=== PATIENT | female | born 1940 | race Caucasian/White ===

== ENCOUNTER → 2020-04-01 12:52 | Outpatient (CLI) | payer MEDICARE, SELFPAY ==
[2020-04-01 13:29] LABS: Erythrocyte Sedimentation Rate 16 mm/hr (0-30)
[2020-04-01 13:47] LABS: Albumin Level 4.4 g/dl (3.5-5.0); Albumin/Globulin Ratio 1.5 (1.1-1.8); Alkaline Phosphatase 92 U/L (38-126); Anion Gap 11.4 mEq/L (5-15); Aspartate Amino Transferase 30 U/L (14-36); Bilirubin,Total 0.6 mg/dl (0.2-1.3); Blood Urea Nitrogen 14 mg/dl (7-17); Calcium 10.3 mg/dl (8.4-10.2); Carbon Dioxide 26 mmol/L (22.0-30.0); Chloride 105 mmol/L (98-107); Estimated Glomerular Filt Rate 60 ml/min (>60); GFR (African American) 73 ML/MIN (>60); Glucose 93 mg/dl (74-100); Potassium 4.4 mmoL/L (3.5-5.1); Sodium 138 mmol/L (136-145); Total Protein,Serum 7.4 g/dl (6.3-8.2)
[2020-04-01 13:49] LABS: Alanine Aminotransferase 5 U/L (12-78)
[2020-04-01 14:06] LABS: T4 (Thyroxine) 8.8 ug/dl (5.53-11.0)
[2020-04-01 14:19] LABS: Thyroid Stimulating Hormone 3.05 uIU/mL (0.465-4.68)
== END ==
PROVIDERS: Visit Provider Family Medicine
DX: E03.9 Hypothyroidism, unspecified (principal); R53.83 Other fatigue
CPT/HCPCS: 80053; 84436; 84443; 85651

== ENCOUNTER → 2021-02-14 14:08 | Outpatient (CLI) | payer MEDICARE, SELFPAY | PROVIDERS: Visit Provider Family Medicine | DX: J32.9 Chronic sinusitis, unspecified (principal) | CPT/HCPCS: 87070; 87186 ==

== ENCOUNTER → 2021-03-02 13:40 | Outpatient (CLI) | payer MEDICARE, SELFPAY | PROVIDERS: Visit Provider Family Medicine | DX: B95.8 Unspecified staphylococcus as the cause of diseases classified elsewhere (principal); J32.8 Other chronic sinusitis | CPT/HCPCS: 87070; 87205 ==

== ENCOUNTER → 2021-05-18 13:54 | Outpatient (CLI) | payer MEDICARE, SELFPAY | PROVIDERS: Visit Provider Family Medicine | DX: R39.9 Unspecified symptoms and signs involving the genitourinary system (principal) | CPT/HCPCS: 87086; 87088; 87186 ==

== ENCOUNTER → 2022-02-20 15:15 | Outpatient (CLI) | payer MEDICARE, SELFPAY ==
[2022-02-20 13:08] LABS: Basophils # 0.1 K/mm3 (0-0.2); Basophils % 1.1 % (0.1-2.0); Eosinophils # 0.6 K/mm3 (0.0-0.4); Eosinophils % 9.2 % (0.1-12.0); Hematocrit 41.9 % (37.0-47.0); Lymphocytes # 1.5 K/mm3 (0.7-4.5); Lymphocytes % 25.2 % (10-50); Mean Corpuscular HGB Conc 33.3 g/dL (31.8-35.4); Mean Corpuscular Hemoglobin 30.2 pg (27.0-31.2); Mean Corpuscular Volume 90.7 fl (81-99); Mean Platelet Volume 7.8 fl (7.4-10.4); Monocytes # 0.4 K/mm3 (0.1-1.0); Monocytes % 5.8 % (1.7-9.3); Neutrophils # 3.6 K/mm3 (1.8-7.8); Neutrophils % 58.6 % (37.0-80.0); Platelet Count 245 K/mm3 (142-424); Red Blood Count 4.62 M/mm3 (4.20-5.40); Red Cell Distribution Width 13.8 % (11.5-17.5); White Blood Count 6.1 K/mm3 (4.8-10.8)
[2022-02-20 13:10] LABS: Chloride 108 mmol/L (98-107)
[2022-02-20 13:11] LABS: Potassium 4.8 mmoL/L (3.5-5.1); Sodium 139 mmol/L (136-145)
[2022-02-20 13:13] LABS: Anion Gap 12.8 mEq/L (5-15); Carbon Dioxide 23 mmol/L (22.0-30.0)
[2022-02-20 13:14] LABS: Albumin Level 3.9 g/dl (3.5-5.0); Albumin/Globulin Ratio 1.6 (1.1-1.8); Calcium 10.6 mg/dl (8.4-10.2); Globulin 2.4 g/dL (1.3-3.2); Glucose 97 mg/dl (74-100); HDL Cholesterol 67 mg/dl (40-60); Total Protein,Serum 6.3 g/dl (6.3-8.2)
[2022-02-20 13:25] LABS: Alanine Aminotransferase 7 U/L (12-78); Alkaline Phosphatase 76 U/L (38-126); Aspartate Amino Transferase 30 U/L (14-36); Bilirubin,Total 0.7 mg/dl (0.2-1.3); Blood Urea Nitrogen 17 mg/dl (7-17); Chol/HDL Ratio 3.3 (1-3.5); Cholesterol 222 mg/dl (140-200); Direct LDL Cholesterol 104.35 mg/dL (100-129); Estimated Glomerular Filt Rate 60 ml/min (>60); GFR (African American) 72 ML/MIN (>60); Triglycerides 122 mg/dl (30-150); VLDL Cholesterol 24 mg/dL (0-40)
[2022-02-20 13:43] LABS: Thyroid Stimulating Hormone 5.01 uIU/mL (0.465-4.68)
== END ==
PROVIDERS: PCP Family Medicine; Visit Provider Family Medicine
DX: Z00.00 Encounter for general adult medical examination without abnormal findings (principal); E04.9 Nontoxic goiter, unspecified; E11.9 Type 2 diabetes mellitus without complications; H40.9 Unspecified glaucoma
CPT/HCPCS: 80053; 80061; 84443; 85025

== ENCOUNTER → 2022-03-01 09:05 | Outpatient (CLI) | payer MEDICARE, SELFPAY ==
--- NOTE | 2022-03-01 09:07 | CA_ITS ---
FINAL REPORT TECHNIQUE: Color Doppler, duplex Doppler and fabian scale sonography of the bilateral neck arterial vasculature was performed. Velocities were measured in the carotid arteries. Stenosis evaluation based on the validated velocity criteria. CLINICAL HISTORY: bruit FINDINGS: The peak systolic velocity of the right common carotid artery is 97 cm/s. The peak systolic velocity of the right internal carotid artery is 84 cm/s and end diastolic velocity 24 cm/s. A small amount of plaque is present. The right external carotid artery is patent. The right vertebral artery is patent with antegrade flow. The peak systolic velocity of the left common carotid artery is 81 cm/s. The peak systolic velocity of the left internal carotid artery is 93 cm/s and end diastolic velocity 28 cm/s. A small amount of plaque is present. The left external carotid artery is patent.The left vertebral artery is patent with antegrade flow. IMPRESSION: Less than 50% bilateral carotid stenoses. Bilateral patent vertebral arteries with antegrade flow. If indicated, CTA or MRA could further evaluate. Reviewed, Interpreted and Dictated by Jian Winn III, MD Transcribed by Amina Younger Authenticated by Jian Winn III, MD on 03/01/2022 10:58:33 AM [facility]
== END ==
PROVIDERS: PCP Family Medicine; Visit Provider Family Medicine
DX: R09.89 Other specified symptoms and signs involving the circulatory and respiratory systems (principal)
CPT/HCPCS: 93880

== ENCOUNTER → 2022-05-15 16:20 | Outpatient (CLI) | payer MEDICARE, SELFPAY ==
[2022-05-15 14:59] LABS: Basophils # 0.1 K/mm3 (0-0.2); Basophils % 2.1 % (0.1-2.0); Eosinophils # 0.4 K/mm3 (0.0-0.4); Hematocrit 42.2 % (37.0-47.0); Hemoglobin 13.4 g/dL (12.2-16.2); Lymphocytes # 1.4 K/mm3 (0.7-4.5); Lymphocytes % 22.4 % (10-50); Mean Corpuscular HGB Conc 31.7 g/dL (31.8-35.4); Mean Corpuscular Hemoglobin 29.9 pg (27.0-31.2); Mean Corpuscular Volume 94.5 fl (81-99); Mean Platelet Volume 8.4 fl (7.4-10.4); Monocytes # 0.4 K/mm3 (0.1-1.0); Monocytes % 6.1 % (1.7-9.3); Neutrophils # 4.1 K/mm3 (1.8-7.8); Neutrophils % 63.5 % (37.0-80.0); Platelet Count 308 K/mm3 (142-424); Red Blood Count 4.47 M/mm3 (4.20-5.40); Red Cell Distribution Width 14.3 % (11.5-17.5); White Blood Count 6.4 K/mm3 (4.8-10.8)
[2022-05-15 15:08] LABS: Alanine Aminotransferase 7 U/L (12-78); Albumin Level 3.7 g/dl (3.5-5.0); Albumin/Globulin Ratio 1.4 (1.1-1.8); Alkaline Phosphatase 78 U/L (38-126); Anion Gap 9.7 mEq/L (5-15); Aspartate Amino Transferase 30 U/L (14-36); Bilirubin,Total 0.3 mg/dl (0.2-1.3); Blood Urea Nitrogen 16 mg/dl (7-17); Calcium 10.3 mg/dl (8.4-10.2); Carbon Dioxide 26 mmol/L (22.0-30.0); Chloride 108 mmol/L (98-107); Estimated Glomerular Filt Rate 60 ml/min (>60); GFR (African American) 72 ML/MIN (>60); Globulin 2.7 g/dL (1.3-3.2); Glucose 95 mg/dl (74-100); Potassium 4.7 mmoL/L (3.5-5.1); Sodium 139 mmol/L (136-145); Total Protein,Serum 6.4 g/dl (6.3-8.2)
[2022-05-15 15:39] LABS: Thyroid Stimulating Hormone 1.58 uIU/mL (0.465-4.68)
== END ==
PROVIDERS: PCP Family Medicine; Visit Provider Family Medicine
DX: E03.9 Hypothyroidism, unspecified (principal)
CPT/HCPCS: 80053; 84443; 85025

== ENCOUNTER → 2023-03-26 23:19 | Outpatient (CLI) | payer MEDICARE, SELFPAY ==
[2023-03-26 18:05] LABS: Basophils % 0.5 % (0.1-2.0); Eosinophils # 0.6 K/mm3 (0.0-0.4); Eosinophils % 8.3 % (0.1-12.0); Hematocrit 44.5 % (37.0-47.0); Lymphocytes # 1.8 K/mm3 (0.7-4.5); Lymphocytes % 25.3 % (10-50); Mean Corpuscular HGB Conc 31.5 g/dL (31.8-35.4); Mean Corpuscular Hemoglobin 28.9 pg (27.0-31.2); Mean Corpuscular Volume 91.8 fl (81-99); Mean Platelet Volume 9.1 fl (7.4-10.4); Monocytes # 0.4 K/mm3 (0.1-1.0); Monocytes % 5.7 % (1.7-9.3); Neutrophils # 4.2 K/mm3 (1.8-7.8); Neutrophils % 60.2 % (37.0-80.0); Platelet Count 259 K/mm3 (142-424); Red Blood Count 4.85 M/mm3 (4.20-5.40); Red Cell Distribution Width 13.5 % (11.5-17.5)
[2023-03-26 18:12] LABS: Alanine Aminotransferase 12 U/L (12-78); Albumin/Globulin Ratio 1.4 (1.1-1.8); Alkaline Phosphatase 84 U/L (38-126); Anion Gap 14.5 mEq/L (5-15); Aspartate Amino Transferase 33 U/L (14-36); Bilirubin,Total 0.7 mg/dl (0.2-1.3); Blood Urea Nitrogen 18 mg/dl (7-17); Calcium 9.6 mg/dl (8.4-10.2); Carbon Dioxide 26 mmol/L (22.0-30.0); Chloride 106 mmol/L (98-107); Chol/HDL Ratio 3.3 (1-3.5); Cholesterol 242 mg/dl (140-200); Estimated Glomerular Filt Rate 60 ml/min (>60); GFR (African American) 72 ML/MIN (>60); Globulin 2.9 g/dL (1.3-3.2); Glucose 84 mg/dl (74-100); HDL Cholesterol 74 mg/dl (40-60); Potassium 4.5 mmoL/L (3.5-5.1); Sodium 142 mmol/L (136-145); Total Protein,Serum 6.9 g/dl (6.3-8.2); Triglycerides 108 mg/dl (30-150); VLDL Cholesterol 22 mg/dL (0-40)
[2023-03-26 18:22] LABS: Direct LDL Cholesterol 119.26 mg/dL (100-129)
[2023-03-26 18:35] LABS: Creatinine,Urine Random 25 mg/dL (Not Estab.)
[2023-03-26 18:38] LABS: Microalbumin < 6.000 mg/L (0-16.7)
[2023-03-26 18:41] LABS: Thyroid Stimulating Hormone 0.93 uIU/mL (0.465-4.68)
== END ==
PROVIDERS: PCP Family Medicine; Visit Provider Family Medicine
DX: R53.83 Other fatigue (principal); J32.9 Chronic sinusitis, unspecified; E11.9 Type 2 diabetes mellitus without complications; E78.5 Hyperlipidemia, unspecified; E55.9 Vitamin D deficiency, unspecified
CPT/HCPCS: 80053; 80061; 82043; 82306; 82570; 83036; 84443; 85025

== ENCOUNTER 2023-04-25 09:46 | Emergency (ER) | payer MEDICARE, SELFPAY ==
[2023-04-25 09:55] VITALS: BP 160/76; PULSE 84; RESP 17; TEMP 36.6; O2SAT 97; BMI 23.4
--- NOTE | 2023-04-25 10:04 | CT_ITS ---
FINAL REPORT TECHNIQUE: Axial images were obtained from the lung apex to the mid abdomen by computed tomography. Coronal and sagittal reformatted images were obtained. This study was performed with techniques to keep radiation doses as low as reasonably achievable, (ALARA). Individualized dose reduction techniques using automated exposure control or adjustment of mA and/or kV according to the patient''s size were employed. CLINICAL HISTORY: pain resulting from fall, RIGHT RIB PAIN FINDINGS: There is no axillary adenopathy. There are multiple borderline mediastinal nodes present. Heart size is normal. There is mild biapical scarring as well as mild bibasilar atelectasis versus scar. There is no pericardial or pleural effusion. Limited images of the upper abdomen are unremarkable. There are several pulmonary nodules identified. There is 1 nodule present in the lateral right upper lobe which measures 6 mm in size. There is a superior segment left lower lobe 4 mm nodule present. No prior films are available for comparison purposes. IMPRESSION: Several pulmonary nodules as described in the body of the report. The largest measures up to 6 mm in size. According to Fleischner Society criteria, suggest a 3 to 6-month CT follow-up. Mild biapical scarring and bibasilar atelectasis versus scar. Several borderline in size mediastinal nodes, nonspecific. Reviewed, Interpreted and Dictated by Jian Winn III, MD Transcribed by Xiao Ang Authenticated and . [facility]
--- NOTE | 2023-04-25 10:08 | CT_ITS ---
FINAL REPORT CLINICAL HISTORY: fall COMPARISON: None FINDINGS: Axial images of the head were obtained without contrast. Coronal and sagittal reformatted images were also obtained. This study was performed with techniques to keep radiation doses as low as reasonably achievable (ALARA). Individualized dose reduction techniques using automated exposure control or adjustment of mA and/or kV according to the patient's size were employed. There is generalized age-appropriate atrophy. Periventricular low-attenuation areas are seen consistent with mild chronic ischemic changes. There is no evidence of intracranial hemorrhage or mass. There is no evidence of acute infarct. There is no evidence of shift of the midline structures. There is evidence of a prior right sided mastoidectomy. Severe sinusitis is present as well. IMPRESSION: Atrophy and mild periventricular chronic ischemic changes. Severe sinusitis. Reviewed, Interpreted and Dictated by Jian Winn III, MD Transcribed by Xiao Ang Authenticated and [facility]
--- NOTE | 2023-04-25 10:08 | CT_ITS ---
FINAL REPORT CLINICAL HISTORY: fall COMPARISON: None FINDINGS: Axial CT images of the cervical spine were obtained without contrast. Sagittal and coronal reformatted images were also obtained. This study was performed with techniques to keep radiation doses as low as reasonably achievable (ALARA). Individualized dose reduction techniques using automated exposure control or adjustment of mA and/or kV according to the patient's size were employed. There is no evidence of fracture or dislocation. The bony alignment is normal. Mild to moderate degenerative changes are present. There is no evidence of canal stenosis. No paraspinous soft tissue abnormality is seen. IMPRESSION: No fracture identified. Mild to moderate degenerative changes present. Reviewed, Interpreted and Dictated by Jian Winn III, MD Transcribed by Xiao Ang Authenticated and [facility]
[2023-04-25 10:27] LABS: Basophils % 0.4 % (0.1-2.0); Eosinophils # 0.3 K/mm3 (0.0-0.4); Eosinophils % 5.1 % (0.1-12.0); Hematocrit 41.5 % (37.0-47.0); Hemoglobin 13.4 g/dL (12.2-16.2); Lymphocytes # 1.2 K/mm3 (0.7-4.5); Lymphocytes % 18.7 % (10-50); Mean Corpuscular HGB Conc 32.2 g/dL (31.8-35.4); Mean Corpuscular Hemoglobin 28.9 pg (27.0-31.2); Mean Corpuscular Volume 89.6 fl (81-99); Mean Platelet Volume 7.6 fl (7.4-10.4); Monocytes # 0.4 K/mm3 (0.1-1.0); Monocytes % 6.2 % (1.7-9.3); Neutrophils # 4.3 K/mm3 (1.8-7.8); Neutrophils % 69.7 % (37.0-80.0); Platelet Count 226 K/mm3 (142-424); Red Blood Count 4.63 M/mm3 (4.20-5.40); Red Cell Distribution Width 13.6 % (11.5-17.5); White Blood Count 6.2 K/mm3 (4.8-10.8)
[2023-04-25 10:32] LABS: Chloride 109 mmol/L (98-107); Sodium 140 mmol/L (136-145)
[2023-04-25 10:34] LABS: Alanine Aminotransferase 15 U/L (12-78); Aspartate Amino Transferase 32 U/L (14-36); Blood Urea Nitrogen 17 mg/dl (7-17); Creatinine Clearance Estimated 48 mL/min (50-200); Estimated Glomerular Filt Rate 53 ml/min (>60); GFR (African American) 64 ML/MIN (>60)
[2023-04-25 10:35] LABS: Albumin Level 3.9 g/dl (3.5-5.0); Albumin/Globulin Ratio 1.3 (1.1-1.8); Alkaline Phosphatase 77 U/L (38-126); Bilirubin,Total 0.9 mg/dl (0.2-1.3); Calcium 9.9 mg/dl (8.4-10.2); Carbon Dioxide 24 mmol/L (22.0-30.0); Glucose 96 mg/dl (74-100); Total Protein,Serum 6.9 g/dl (6.3-8.2)
[2023-04-25 11:01] VITALS: BP 170/89; PULSE 75; O2SAT 98
[2023-04-25 11:30] VITALS: BP 154/78; PULSE 75; RESP 15; O2SAT 98
--- NOTE | 2023-04-25 11:40 | PC.NURSE ---
Rounded on patient; call her within reach. Water provided to patient
[2023-04-25 12:00] VITALS: BP 152/75; PULSE 72; O2SAT 98
--- NOTE | 2023-04-25 12:59 | HMH.EDGENADL ---
Discharge Plan Disposition Patient Disposition: Home, Self-Care Condition: Good Chief Complaint: Fall Prescriptions Prescriptions: No Action latanoprost 0.005 % drops OPHTHALMIC methylprednisolone acetate 40 mg/mL suspension 40 mg IM ONCE Qty: 1 0RF triamcinolone acetonide [Nasacort] 55 mcg aerosol,spray 2 spray intranasal HS Qty: 16.9 10RF Rx Instructions: administer into each nostril fluticasone propion-salmeterol [Advair Diskus] 250-50 mcg/dose blister with device 1 inh inhalation BID Qty: 60 10RF omeprazole 20 mg capsule,delayed release(DR/EC) 20 mg PO DAILY Qty: 90 10RF levothyroxine [Synthroid] 50 mcg tablet 50 mcg PO DAILY Qty: 90 3RF cefdinir 300 mg capsule 300 mg PO BID 10 Days Qty: 20 0RF fluticasone propion-salmeterol [Advair Diskus] 250-50 mcg/dose blister with device 1 inh INHALATION BID Qty: 180 10RF meclizine 25 mg tablet 25 mg PO TID PRN (Reason: dizziness) Qty: 30 10RF albuterol sulfate 90 mcg/actuation HFA aerosol inhaler 2 puff IH QID PRN (Reason: shortness of breath or wheezing) Qty: 8.5 10RF Rx Instructions: please provide with spacer magnesium citrate Solution 150 ml PO DAILY PRN (Reason: constipation) Qty: 296 3RF polyethylene glycol 3350 [Miralax] 17 gram/dose powder 17 g PO BID Qty: 510 10RF Referrals Follow up/Referrals: Scott Small MD [Primary Care Provider] - See instructions Clinical Impressions Clinical Impression: Incidental lung nodule Fall Qualifiers: Encounter type: initial encounter Qualified Code(s): W19.XXXA - Unspecified fall, initial encounter Discharge ED Provider: Johnny English General Adult HPI General Chief complaint: Fall Stated complaint: Fall@home 7/12 rib pain, LT leg weakness, nausea Time Seen by Provider: 04/25/23 10:57 Mode of Arrival: Wheelchair Source of Information: Patient and Relative Limitations: No Limitations Description of Symptoms (Recalled from ER Triage Doc. by RN): pt presents to ed with c/o right rib pain that radiates under her breast and generalized wekaness following a fall yesterday. pt states she was standing in the [place] on the phone and felt herself starting to fall backwards. pt states she caught her fall on a chair and fell onto her right side onto the hardwood. pt denies hitting her head and denies LOC. abrasion noted to the right side of her back. History of Present Illness HPI narrative: 83yo F presents to the ER secondary to right rib pain. Reports she fell yesterday. Denies LOC or head strike. No recent illness. No shortness of breath. Does not take a blood thinner. With family at bedside, the patient states her left leg did not feel quite right. Denies weakness or paresthesia. Related Data Home Medications Medication Instructions Recorded Confirmed latanoprost 0.005 % eye drops ophthalmic (eye) 04/01/20 04/18/23 Previous Rx's Medication Instructions Recorded fluticasone 250 mcg-salmeterol 50 1 inh inhalation BID #180 ea 02/20/22 mcg/dose blistr powdr for inhalation (Advair Diskus) meclizine 25 mg tablet 25 mg PO TID PRN dizziness #30 tabs 02/20/22 albuterol sulfate 90 mcg/actuation 2 puff inhalation QID PRN 04/13/22 aerosol inhaler shortness of breath or wheezing #8.5 grams magnesium citrate 150 ml PO DAILY PRN constipation 12/24/22 #296 mL polyethylene glycol 3350 17 17 g PO BID #510 grams 12/24/22 gram/dose oral powder (Miralax) cefdinir 300 mg capsule 300 mg PO BID 10 days #20 caps 04/18/23 fluticasone 250 mcg-salmeterol 50 1 inh inhalation BID #60 ea 04/18/23 mcg/dose blistr powdr for inhalation (Advair Diskus) levothyroxine 50 mcg tablet 50 mcg PO DAILY #90 tabs 04/18/23 (Synthroid) omeprazole 20 mg capsule,delayed 20 mg PO DAILY #90 caps 04/18/23 release triamcinolone acetonide 55 mcg 2 spray intranasal HS #16.9 mL 04/18/23 nasal spray aerosol (Nasacort) Allergies Allergy/AdvReac Type Severity R
[2023-04-25 13:18] VITALS: BP 148/70; PULSE 74; RESP 20; TEMP 36.6; O2SAT 99
== END 2023-04-25 13:19 | disposition home or self-care (01) ==
PROVIDERS: Emergency Provider Family Medicine; PCP Family Medicine
DX: R07.81 Pleurodynia (principal); R53.1 Weakness; R11.0 Nausea; W19.XXXA Unspecified fall, initial encounter; J45.909 Unspecified asthma, uncomplicated; R91.1 Solitary pulmonary nodule
CPT/HCPCS: 70450; 71250; 72125; 80053; 85025; 99284; 99285

== ENCOUNTER 2023-11-06 21:00 | Outpatient (CLI) | payer MEDICARE, SELFPAY | END 2023-11-06 23:59 | LOC: LAB.DROPOF 21:01 | PROVIDERS: PCP Family Medicine; Visit Provider Family Medicine | DX: R69 Illness, unspecified (principal); R09.81 Nasal congestion | CPT/HCPCS: 87070 ==

== ENCOUNTER 2023-12-03 10:18 | Outpatient (CLI) | payer MEDICARE, SELFPAY ==
--- NOTE | 2023-12-03 10:25 | CT_ITS ---
FINAL REPORT TECHNIQUE: Axial images were obtained through the chest without contrast. CLINICAL HISTORY: Pulmonary nodules COMPARISON: 04/25/2023 FINDINGS: The lateral right upper lobe 6 mm nodule identified on the prior CT of April 2023 remains present and is unchanged in size and appearance. This is best seen on image #108 of series 3. The superior segmental left lower lobe nodule noted on the prior exam is also unchanged and stable, best seen on image #51 of series 3. There are several other small lower lobe scattered nodules, for instance bilateral nodules seen on image #122 of series 3, measuring 3 to 4 mm in size. The heart size is normal. There is no pericardial or pleural effusion. Limited images of the upper abdomen are unremarkable. IMPRESSION: No significant change in the multiple nodules identified on the prior CT of April 2023. Would recommend 1 year follow-up CT examination to evaluate stability. Reviewed, Interpreted and Dictated by Heath Godinez MD Transcribed by Xiao Ang Authenticated and [facility]
== END 2023-12-03 23:59 ==
LOC: RAD 10:19
PROVIDERS: PCP Family Medicine; Visit Provider Family Medicine
DX: R91.1 Solitary pulmonary nodule (principal)
CPT/HCPCS: 71250

== ENCOUNTER 2024-02-17 14:20 | Outpatient (CLI) | payer MEDICARE, SELFPAY ==
[2024-02-17 18:56] LABS: Basophils # 0.1 K/mm3 (0-0.2); Basophils % 0.8 % (0.1-2.0); Eosinophils # 0.6 K/mm3 (0.0-0.4); Eosinophils % 9.4 % (0.1-12.0); Hematocrit 41.9 % (37.0-47.0); Hemoglobin 13.3 g/dL (12.2-16.2); Lymphocytes # 1.6 K/mm3 (0.7-4.5); Lymphocytes % 25.1 % (10-50); Mean Corpuscular HGB Conc 31.7 g/dL (31.8-35.4); Mean Corpuscular Hemoglobin 30.5 pg (27.0-31.2); Mean Corpuscular Volume 96.3 fl (81-99); Mean Platelet Volume 9.4 fl (7.4-10.4); Monocytes # 0.4 K/mm3 (0.1-1.0); Monocytes % 5.8 % (1.7-9.3); Neutrophils # 3.6 K/mm3 (1.8-7.8); Platelet Count 266 K/mm3 (142-424); Red Blood Count 4.35 M/mm3 (4.20-5.40); Red Cell Distribution Width 14.5 % (11.5-17.5); White Blood Count 6.2 K/mm3 (4.8-10.8)
[2024-02-17 19:43] LABS: Alanine Aminotransferase 8 U/L (12-78); Albumin Level 3.8 g/dl (3.5-5.0); Albumin/Globulin Ratio 1.5 (1.1-1.8); Alkaline Phosphatase 76 U/L (38-126); Anion Gap 10.4 mEq/L (5-15); Aspartate Amino Transferase 25 U/L (14-36); Bilirubin,Total 0.4 mg/dl (0.2-1.3); Blood Urea Nitrogen 16 mg/dl (7-17); Calcium 9.8 mg/dl (8.4-10.2); Carbon Dioxide 24 mmol/L (22.0-30.0); Chloride 110 mmol/L (98-107); Chol/HDL Ratio 3.1 (1-3.5); Cholesterol 230 mg/dl (140-200); Estimated Glomerular Filt Rate 53 ml/min (>60); GFR (African American) 64 ML/MIN (>60); Globulin 2.5 g/dL (1.3-3.2); Glucose 98 mg/dl (74-100); HDL Cholesterol 75 mg/dl (40-60); Potassium 4.4 mmoL/L (3.5-5.1); Sodium 140 mmol/L (136-145); Total Protein,Serum 6.3 g/dl (6.3-8.2); Triglycerides 126 mg/dl (30-150); VLDL Cholesterol 25 mg/dL (0-40)
[2024-02-17 20:00] LABS: 25-OH Vitamin D, Total 45.8 ng/mL (30-100)
== END 2024-02-17 23:59 | disposition home or self-care (01) ==
LOC: LAB.DROPOF 02-18 14:21
PROVIDERS: PCP Family Medicine; Visit Provider Family Medicine
DX: J45.20 Mild intermittent asthma, uncomplicated (principal); E03.9 Hypothyroidism, unspecified; E55.9 Vitamin D deficiency, unspecified; Z79.899 Other long term (current) drug therapy
CPT/HCPCS: 80053; 80061; 82306; 84443; 85025

== ENCOUNTER 2024-03-13 18:41 | Outpatient (CLI) | payer MEDICARE, SELFPAY | END 2024-03-13 23:59 | disposition home or self-care (01) | LOC: LAB.DROPOF 18:43 | PROVIDERS: PCP Family Medicine; Visit Provider Family Medicine | DX: R05.9 Cough, unspecified (principal); U07.1 COVID-19 | CPT/HCPCS: 87635 ==

== ENCOUNTER 2024-09-14 11:52 | Outpatient (CLI) | payer MEDICARE, SELFPAY ==
[2024-09-14 18:37] LABS: Hemoglobin A1C 5.1 % (4.0-6.0)
[2024-09-14 18:49] LABS: Albumin Level 4.1 g/dl (3.5-5.0); Chloride 109 mmol/L (98-107); Potassium 4.3 mmoL/L (3.5-5.1); Sodium 141 mmol/L (136-145)
[2024-09-14 18:51] LABS: Blood Urea Nitrogen 15 mg/dl (7-17); Estimated Glomerular Filt Rate 53 ml/min (>60); GFR (African American) 64 ML/MIN (>60)
[2024-09-14 18:52] LABS: Alanine Aminotransferase 10 U/L (12-78); Albumin/Globulin Ratio 1.6 (1.1-1.8); Alkaline Phosphatase 85 U/L (38-126); Anion Gap 12.3 mEq/L (5-15); Aspartate Amino Transferase 28 U/L (14-36); Bilirubin,Total 0.9 mg/dl (0.2-1.3); Calcium 10.1 mg/dl (8.4-10.2); Carbon Dioxide 24 mmol/L (22.0-30.0); Globulin 2.6 g/dL (1.3-3.2); Glucose 75 mg/dl (74-100); Total Protein,Serum 6.7 g/dl (6.3-8.2)
== END 2024-09-14 23:59 | disposition home or self-care (01) ==
LOC: LAB.DROPOF 09-15 15:18
PROVIDERS: PCP Family Medicine; Visit Provider Family Medicine
DX: Z13.1 Encounter for screening for diabetes mellitus (principal); Z13.9 Encounter for screening, unspecified
CPT/HCPCS: 80053; 83036

== ENCOUNTER 2025-02-19 14:08 | Outpatient (CLI) | payer MEDICARE, SELFPAY ==
[2025-02-19 18:27] LABS: Basophils # 0.1 K/mm3 (0-0.2); Basophils % 0.9 % (0.1-2.0); Eosinophils # 0.7 Kmm3 (0.0-0.4); Eosinophils % 10.3 % (0.1-12.0); Hematocrit 39.2 % (37.0-47.0); Hemoglobin 12.9 g/dL (12.2-16.2); Immature Granulocytes # 0.02 10^3uL; Immature Granulocytes % 0.3 %; Lymphocytes # 1.8 K/mm3 (0.7-4.5); Lymphocytes % 28.6 % (10-50); Mean Corpuscular HGB Conc 32.9 g/dL (31.8-35.4); Mean Corpuscular Hemoglobin 30.6 pg (27.0-31.2); Mean Corpuscular Volume 92.9 fl (81-99); Mean Platelet Volume 9.6 fl (7.4-10.4); Monocytes # 0.4 K/mm3 (0.1-1.0); Monocytes % 6.9 % (1.7-9.3); Neutrophils # 3.4 K/mm3 (1.8-7.8); Nucleated Red Blood Cells # 0 10^3/uL; Nucleated Red Blood Cells % 0 %; Platelet Count 247 K/mm3 (142-424); Red Blood Count 4.22 M/mm3 (4.20-5.40); Red Cell Distribution Width 13.3 % (11.5-17.5); Red Cell Distribution Width-SD 45.6 fL; White Blood Count 6.4 K/mm3 (4.8-10.8)
[2025-02-19 18:51] LABS: Alanine Aminotransferase 7 U/L (12-78); Albumin/Globulin Ratio 1.6 (1.1-1.8); Alkaline Phosphatase 73 U/L (38-126); Anion Gap 4.4 mEq/L (5-15); Aspartate Amino Transferase 25 U/L (14-36); Bilirubin,Total 0.8 mg/dl (0.2-1.3); Blood Urea Nitrogen 16 mg/dl (7-17); Calcium 9.9 mg/dl (8.4-10.2); Carbon Dioxide 25 mmol/L (22.0-30.0); Chloride 112 mmol/L (98-107); Chol/HDL Ratio 2.8 (1-3.5); Cholesterol 179 mg/dl (140-200); Estimated Glomerular Filt Rate 53 ml/min (>60); GFR (African American) 64 ML/MIN (>60); Globulin 2.5 g/dL (1.3-3.2); Glucose 84 mg/dl (74-100); HDL Cholesterol 64 mg/dl (40-60); Potassium 4.4 mmoL/L (3.5-5.1); Sodium 137 mmol/L (136-145); Total Protein,Serum 6.5 g/dl (6.3-8.2); Triglycerides 76 mg/dl (30-150); VLDL Cholesterol 15 mg/dL (0-40)
[2025-02-19 19:02] LABS: Direct LDL Cholesterol 93.74 mg/dL (100-129)
[2025-02-19 19:45] LABS: Thyroid Stimulating Hormone 0.91 uIU/mL (0.465-4.68)
--- OUTSIDE RECORDS SUMMARY | 2025-02-22 09:56 | XMS_ITS | Continuity of Care Document ---
Author Organization [facility] & [place], [facility] [id number] Address [address] [place] [address] [address] [place] [address] Care Team Providers Care Hospitality Housekeeper Name Role Phone GABY ANGEL Primary Care Provider [phone] Assessment No assessment recorded. Plan of Treatment Reminders Order Date Submit Date Provider Last Modified By Organization Details Last Modified Time Details Appointments None record ed. Lab None record ed. Referral None record ed. Procedures None record ed. Surgeries None record ed. Imaging None record ed. Medication Orders None record ed. Patient TargetsNo targets recorded. Patient InstructionsNo instructions recorded. Reason for Referral None Reported. Problems Name Problem SNOMED Code Status Onset Date Resolution Date Notes Provider Name and Address Organization Details Recorded Time Chest pain 54028321 Active 2023 Jose A Westbrook MD [address] [place] [address],[place] [address] [place] [address], [phone], [facility] & [place] 4 09:44:02 Atrial fibrillation 69394188 Active 2023 Jose A Westbrook MD [address] [place] [address],[place] [address] [place] [address], [phone], [facility] & [place] 4 09:44:08 Tachycardia 9410009 Active 2023 Jose A Westbrook MD [address] [place] [address],[place] [address], [place], [phone], [facility] & [place] 4 09:44:14 Dyspnea on exertion 78927763 Active 2023 Jose A Westbrook MD [address] [place] [address],[place] [address], [phone], [place] - [facility] - [place] & [place] 4 14:23:14 Electrocardiog sonya abnormal 531476422 Active 2023 Jose A Westbrook MD [address] [place] [address],[place] [address] [place] [address], [phone], [place] [facility] [place] & [place] 4 14:23:28 Hypothyroidism 71158463 Active 2023 Jose A Westbrook MD [address] [place] [address],[facility] te [address] [place] [address], [phone], [place] [facility] [place] & [place] 4 14:23:32 Near syncope 838591018 Active 2023 Jose A Westbrook MD [address] [place] [address],[facility] te [address] [place] [address], [phone], [place] [facility] & [place] 4 14:23:36 Dyspnea 360496380 Active 2023 Jose A Westbrook MD [address] [place] [address],[facility] te [address] [place] [address], [phone], [place] [facility] - [place] & [place] 4 16:26:19 Pulmonary hypertension 96072574 Active 2023 Jose A Westbrook MD [address] [place] [address],[place] [address] [place] [address], [phone], [place] [facility] - [place] & [place] 4 16:29:00 Sensorineural hearing loss 22502327 Active 2023 BETTINA OLIVER [address] [place] [address],[place] [address] [place] [address], [phone], [place] - [facility] - [place] & [place] 4 13:28:18 Problem Notes None recorded. Procedures Surgical History Date Name Laterality Status Provider Name and Address Organization Details Recorded Time colonoscopy completed Laura Parks [place] - [facility] - [place] & [place] 05/21/2024 11:20:12 Back Surgery completed Kavya Dozier [place] - [facility] - [place] & [place] 09/01/2024 09:22:46 operation on the ear completed Kavya Dozier [place] - [facility] - [place] & [place] 09/01/2024 09:23:12 Imaging Results None recorded. Procedure Notes None recorded. Medical Equipment None Reported. Allergies No known drug allergies Medications Name Sig Start Date Stop Date Status Note LastModified by Organization Details LastModified Time latanoprost 0.005 % eye drops active Not Available Not Available Not Available fluticasone 250 mcg-salmete rol 50 mcg/dose blistr powdr for inhalation active Not Available Not Available N ot Available nystatin 100,000 unit/mL oral suspension active Not Available Not Available N ot Available azithromyci n 250 mg tablet 05/21 completed Not Available Not Available Not Available ondansetron HCl 4 mg tablet 05/21 completed Not Available Not Available Not Available prednisone 20 mg tablet 05/21 completed Not Available Not Available Not Available hydroxyzine HCl 50 mg tablet 05/21 completed Not Available Not Available Not Available sulfamethox azole 800 mg-trimetho prim 160 mg tablet 05/21 completed Not Available Not Available Not Available amoxicillin 875 mg tablet 05/21 completed Not Available Not Available Not Available levothyroxi ne 50 mcg tablet active Not Available Not Available Not Available cephalexin 500 mg capsule 05/21 completed Not Available Not Available Not Available brimonidine 0.2 % eye drops active Not Available Not Available Not Available omeprazole 20 mg capsule,del ayed release active Not Available Not Available Not Available montelukast 10 mg tablet 05/21 completed Not Available Not Available Not Available metoprolol succinate ER 25 mg tablet,exte nded release 24 hr Take 1 tablet every day by oral route. 2023 active Not Available Not Available Not Avai lable methylpredn isolone 4 mg tablets in a dose pack TAKE DIRECTED 05/21 completed Not Available Not Available Not Available albuterol sulfate HFA 90 mcg/actuati on aerosol inhaler active Not Available Not Available Not Available fluticasone propionate 50 mcg/actuati on nasal spray,suspe nsion active Not Available Not Available Not Available dorzolamide 2 % eye drops active Not Available Not Available Not Available azithromyci n 500 mg tablet 05/21 completed Not Available Not Available Not Available lubiproston e 8 mcg capsule 05/21 completed Not Available Not Available Not Available GaviLyte-G 236 gram-22.74 gram-6.74 gram-5.86 gram oral solution 05/21 completed Not Available Not Available Not Available Aerochamber Plus Flow-Vu active Not Available Not Available Not Available Linzess 72 mcg capsule 05/21 completed Not Available Not Available Not Available Vyzulta 0.024 % eye drops active Not Available Not Available Not Available Plenvu 140 gram-9 gram-5.2 gram powder packs 05/21 completed Not Available Not Available Not Available Vitals None Recorded Social History Question Answer Notes LastModified by Organizat ion Details LastModified Time Tobacco Smoking Status Never Smoker Laura Charly [facility] 05/21/2024 11:19:47 What Is Your Level Of Caffeine Consumption? Occasional [email or web address] Information not available 05/21/2024 What Type Of Diet Are You Following? REGULAR Information not available 05/21/2024 Sex: Unknown Functional Status Question Answer Note LastModified by Organizat ion Details LastModified Time Do you use any illicit or recreational drugs? No [email or web address] Information not available 05/21/2024 Do you or have you ever used any other forms of tobacco or nicotine? No Information not available 05/21/2024 What is your level of alcohol consumption? None [email or web address] Information not available 05/21/2024 What is your exercise level? Occasional [email or web address] Information not available 05/21/2024 Mental Status None recorded. Family History Relationship Description Onset Age of this Age Resolved Age Notes LastModified by Organization Details LastModified Time Mother Cerebrovascu lar accident [email or web address] Not available 09/01/2024 09:22:21 Medical History Condition Response Asthma Y GERD/Reflux Y Gynecological HistoryNo gynecological history recorded. Obstetrics History GPAL:G 0 P 0 0 0 0 Past Encounters Encounter ID Performer Location Encounter Start Date Encounter Closed Date Diagnosis/Indication Diagnosis SNOMED-CT Code Diagnosis ICD10 Code Diagnosis Note [id number] BETTINA OLIVER [facility] [address] [place] [address] 01/18/2025 10:41:46 01/18/2025 10:42:03 Sensorineural hearing loss 44456435 H90.3 Health Concerns Section Related Observation LastModified by Organization Detai ls LastModified Time None Recorded Concern Status LastModified by Organization Details LastModified Time None Recorded Payers Encounter Date Sequence Insurance Name Policy Number Policy Stevenson Covered Member ID Stevenson Member ID Guarantor Name 01/18/2025 1 [employer] (MEDICARE REPLACEMENT/A DVANTAGE - PPO) Lisbet Maya [id number] Lisbet Maya Notes Date Note Type Note Provider Name and Address Organization Details Recorded Time 01/18/2025 text/html Patient was seen today for a hearing aid service. Cleaned and adjusted hearing aids this date. TRACY KURTZ, AUD [id number] [facility], [place], [address], [facility] - [place] - [place] & [place] 01/18/2025 10:42:52 OBGyn Episode No OBEpisode recorded.
--- OUTSIDE RECORDS SUMMARY | 2025-02-22 09:56 | XMS_ITS | Continuity of Care Document ---
Author Organization [facility] & [place] - [id number] [place] [address] [address] [place] [address] Care Team Providers Care [employer] Name Role Phone GABY ANGEL Primary Care Provider [phone] Assessment No assessment recorded. Plan of Treatment [...] Address Organization Details Recorded Time Chest pain 13872843 Active 2023 Jose A Westbrook MD [address] [place] [address],[place] te [address] [place] [address], [phone], [facility] & [place] 4 09:44:02 Atrial fibrillation 09780783 Active 2023 Jose A Westbrook MD [address] [place] [address],[place] [address] [place] [address], [phone], [facility] & [place] 4 09:44:08 Tachycardia 8038930 Active 2023 Jose A Westbrook MD [address] [place] [address],[place] [address], [place], [phone], [facility] & [place] 4 09:44:14 Dyspnea on exertion 74924356 Active 2023 Jose A Westbrook MD [address] [place] [address],[place] [address] [place], [phone], [place] - [facility] - [place] & [place] 4 14:23:14 Electrocardiog sonya abnormal 811010392 Active 2023 Jose A Westbrook MD [address] [place] [address],[place] te [address] [place] [address], [phone], [place] [facility] - [place] & [place] 4 14:23:28 Hypothyroidism 47831991 Active 2023 Jose A Westbrook MD [address] [place] [address],[facility] te [address] [place] [address], [phone], [place] [facility] - [place] & [place] 4 14:23:32 Near syncope 517570444 Active 2023 Jose A Westbrook MD [address] [place] [address],[facility] te [address] [place] [address], [phone], [place] [facility] & [place] 4 14:23:36 Dyspnea 611361164 Active 2023 Jose A Westbrook MD [address] [place] [address],[facility] te [address] [place] [address], [phone], [place] [facility] - [place] & [place] 4 16:26:19 Pulmonary hypertension 95443893 Active 2023 Jose A Westbrook MD [address] [place] [address],[place] [address] [place] [address], [phone], [place] [facility] - [place] & [place] 4 16:29:00 Sensorineural hearing loss 53456430 Active 2023 BETTINA OLIVER [address] [place] [address],[place] [address] [place] [address], [phone], [place] [facility] - [place] & [place] 4 13:28:18 Problem Notes None recorded. Procedures Surgical History Date Name Laterality Status Provider Name and Address Organization Details Recorded Time colonoscopy completed Laura Parks [place] - [facility] - [place] & [place] 05/21/2024 11:20:12 Back Surgery completed Kavya Dozier [place] - [facility] - [place] & [place] 09/01/2024 09:22:46 operation on the ear completed Kavya Dozier [place] - [facility] - [place] & [place] 09/01/2024 09:23:12 Imaging Results None recorded. Procedure [...] Tobacco Smoking Status Never Smoker Laura Charly [facility] 05/21/2024 11:19:47 What Is Your Level Of Caffeine Consumption? Occasional [email or web address] Information not available 05/21/2024 What Type Of Diet Are You Following? REGULAR [email or web address] Information not available 05/21/2024 Sex: Unknown Functional Status Question Answer Note LastModified by Organizat ion Details LastModified Time Do you use any illicit or recreational drugs? No [email or web address] Information not available 05/21/2024 Do you or have you ever used any other forms of tobacco or nicotine? No [email or web address] Information not available 05/21/2024 What is your level of alcohol consumption? None [email or web address] Information not available 05/21/2024 What is your exercise level? Occasional [email or web address] Information not available 05/21/2024 Mental Status None recorded. Family History Relationship Description Onset Age of this Age Resolved Age Notes LastModified by Organization Details LastModified Time Mother Cerebrovascu lar accident [email or web address] Not available 09/01/2024 09:22:21 Medical History Condition Response Asthma Y GERD/Reflux Y Gynecological HistoryNo gynecological history recorded. Obstetrics History GPAL:G 0 P 0 0 0 0 Past Encounters Encounter ID Performer Location Encounter Start Date Encounter Closed Date Diagnosis/Indication Diagnosis SNOMED-CT Code Diagnosis ICD10 Code Diagnosis Note [id number] BETTINA OLIVER [facility] [place] [address] [place] [address] 01/18/2025 10:41:46 01/18/2025 10:42:03 Sensorineural hearing loss 09210522 H90.3 [id number] BETTINA OLIVER [facility] [place] [address] [address] [place] [address] 02/15/2025 09:01:24 02/15/2025 09:01:43 Sensorineural hearing loss 14828196 H90.3 Health Concerns Section Related Observation LastModified by Organization Detai ls LastModified Time None Recorded Concern Status LastModified by Organization Details LastModified Time None Recorded Payers Encounter Date Sequence Insurance Name Policy Number Policy Stevenson Covered Member ID Stevenson Member ID Guarantor Name 02/15/2025 1 [employer] (MEDICARE REPLACEMENT/A DVANTAGE - PPO) Lisbet Maya [id number] Lisbet Maya Notes Date Note Type Note Provider Name and Address Organization Details Recorded Time 02/15/2025 text/html Patient was seen today for a hearing aid service. Cleaned and adjusted hearing aids this date. BETTINA OLIVER [address] [facility], [place], [address], [facility] - [place] - [place] & [place] 02/15/2025 09:03:47 OBGyn Episode No OBEpisode recorded.
== END 2025-02-19 23:59 | disposition home or self-care (01) ==
LOC: LAB.DROPOF 02-22 09:54
PROVIDERS: PCP Family Medicine; Visit Provider Family Medicine
DX: E03.9 Hypothyroidism, unspecified (principal)
CPT/HCPCS: 80053; 80061; 84443; 85025